=== PATIENT | female | born 1945 | race Caucasian/White ===

== ENCOUNTER → 2016-11-02 | Outpatient (CLI) | payer BC ==
[~2016-11-02] MED LIST: ASPEC81 PO; ATEN-175 PO; ATOR-26 PO; EZET10TA63 PO; FLUO20CA35 PO; GLCSC750600 PO; INSUINJ SC; LEVO100T7 PO; LOSA25TA18 PO; METF1000 PO; MULTCHW PO; NTRGSL/4 UT; REPA2TAB12 PO
[2016-11-02 14:21] LABS: ESTIMATED AVERAGE GLUCOSE 137 mg/dl; HA1C FLAG Normal (Normal)
== END | disposition home or self-care (01) ==
LOC: C.LABBC 11:17
PROVIDERS: ATTEND Nurse Practitioner Adult Health
DX: E11.9 Type 2 diabetes mellitus without complications (principal)

== ENCOUNTER → 2017-01-22 | Outpatient (CLI) | payer BC ==
[~2017-01-22] MED LIST changes: -REPA2TAB12 PO; +REPA2TAB13 PO
[2017-01-22 13:56] LABS: CHOLESTEROL/HDL RATIO 2.5; ESTIMATED AVERAGE GLUCOSE 140 mg/dl; HA1C FLAG Normal (Normal)
== END | disposition home or self-care (01) ==
LOC: C.LABBC 09:17
PROVIDERS: ATTEND Internal Medicine Cardiovascular Disease
DX: I25.10 Atherosclerotic heart disease of native coronary artery without angina pectoris (principal); E11.9 Type 2 diabetes mellitus without complications

== ENCOUNTER → 2017-04-08 | Outpatient (CLI) | payer BC ==
--- NOTE | 2017-04-08 15:20 | DIAGNOSTIC IMAGING REPORT ---
RIGHT ANKLE MIN 3 VIEWS ROUTINE CLINICAL HISTORY: 72 years-old Female presenting with right ankle pain for 6 weeks, most painful laterally. TECHNIQUE: Frontal, mortise, and lateral views of the right ankle were obtained. COMPARISON: None. FINDINGS: Ankle mortise intact. No acute fracture or malalignment. Prominent bone spur at the inferior calcaneus. No additional degenerative change is evident. Regional soft tissues within normal limits. IMPRESSION: 1. No acute osseous injury of the right ankle. Specifically, no abnormality along the lateral aspect. 2. Prominent enthesophyte at the origin of the plantar fascia. Electronically signed by: Vinayak Harris M.D. 04/08/2017 3:18 PM Dictated Date/Time: 04/08/2017 3:17 PM
[2017-04-08 16:30] LABS: BASO % 0.5 %; BASO ABS # 0.06 K/uL (0-0.2); COMPLETE YES; EOS % 3.2 %; HEMATOCRIT 42.4 % (37-47); IG% 0.4 %; LYMPH % 21.8 %; LYMPH ABS # 2.57 K/uL (1.2-3.4); MEAN CELL VOLUME 92.4 fL (80-100); MEAN CORPUSCULAR HEMOGLOBIN 29.8 pg (25-34); MEAN CORPUSCULAR HGB CONC 32.3 g/dl (32-36); MEAN PLATELET VOLUME 10.2 fL (7.4-10.4); MONO % 6.4 %; NEUT % 67.7 %; PLATELET COUNT 386 K/uL (130-400); RED BLOOD COUNT 4.59 M/uL (4.2-5.4)
[2017-04-08 16:51] LABS: C-REACTIVE PROTEIN 0.71 mg/dl (0-0.29); RHEUMATOID FACTOR < 10.0 U/mL (0-15); THYROID STIMULATING HORMONE 0.815 uIu/ml (0.300-4.500); URIC ACID 6.9 mg/dl (2.6-7.2)
[2017-04-08 17:53] LABS: LYME DISEASE AB IGG NEG (NEG); LYME DISEASE AB IGM NEG (NEG)
--- NOTE | 2017-04-15 13:25 | CODING QUERY MEDICAL NECESSITY ---
SUPPORTING DIAGNOSIS NEEDED A supporting diagnosis is required for the test/procedure performed on this patient in order for us to be reimbursed by the patient's insurance. Please provide a supporting diagnosis for the following test/procedure listed below next to the test name along with your signature. *If there is no additional diagnosis for this patient that would support the following test/procedure please document that below next to the test/procedure. Test(s)/Procedure(s) that require a supporting diagnosis: * VITAMIN D, 25-HYDROXY DIAGNOSIS: Provider Signature: Date: Thank you Martha Gross [employer] Once completed, please kindly fax back to [phone] For questions please call [phone]
== END | disposition home or self-care (01) ==
LOC: C.RADBC 12:52
PROVIDERS: ATTEND Nurse Practitioner Family
DX: M25.50 Pain in unspecified joint (principal); M25.571 Pain in right ankle and joints of right foot

== ENCOUNTER → 2017-04-28 | Outpatient (CLI) | payer BC ==
--- NOTE | 2017-04-28 12:37 | DIAGNOSTIC IMAGING REPORT ---
R HAND MIN 3 VIEWS ROUTINE, L HAND MIN 3 VIEWS ROUTINE CLINICAL HISTORY: M25.571 bilateral hand painR76.8 Positive JEN (antinuclear antibody COMPARISON STUDY: None. FINDINGS: No fracture or dislocation. Bone mineralization is intact. Mild soft tissue swelling within the bilateral the AP and PIP joints, right greater than left. There is severe osteoarthritis at the DIP and PIP joints of the hands demonstrated by [id number]-jc-ukrt articulation and large marginal osteophytes. These also demonstrate a seagull deformity consistent with a superimposed erosive arthritis component. There is moderate to severe osteoarthritis within the bilateral first carpometacarpal joints. Mild osteoarthritis within the bilateral MCP joints. IMPRESSION: Advanced osteoarthritis within the bilateral hands as described above with superimposed erosive arthritis component at the majority of the DIP and PIP joints. Electronically signed by: Ezequiel Tate M.D. 04/28/2017 12:36 PM Dictated Date/Time: 04/28/2017 12:33 PM
--- NOTE | 2017-04-28 12:37 | DIAGNOSTIC IMAGING REPORT ---
R HAND MIN 3 VIEWS ROUTINE, L HAND MIN 3 VIEWS ROUTINE CLINICAL HISTORY: M25.571 bilateral hand painR76.8 Positive JEN (antinuclear antibody COMPARISON STUDY: None. FINDINGS: No fracture or dislocation. Bone mineralization is intact. Mild soft tissue swelling within the bilateral the AP and PIP joints, right greater than left. There is severe osteoarthritis at the DIP and PIP joints of the hands demonstrated by ehha-bc-card articulation and large marginal osteophytes. These also demonstrate a seagull deformity consistent with a superimposed erosive arthritis component. There is moderate to severe osteoarthritis within the bilateral first carpometacarpal joints. Mild osteoarthritis within the bilateral MCP joints. IMPRESSION: Advanced osteoarthritis within the bilateral hands as described above with superimposed erosive arthritis component at the majority of the DIP and PIP joints. Electronically signed by: Ezequiel Tate M.D. 04/28/2017 12:36 PM Dictated Date/Time: 04/28/2017 12:33 PM
[2017-04-28 13:48] LABS: ALT/SGPT 45 U/L (12-78); AST/SGOT 38 U/L (15-37); BLOOD UREA NITROGEN 14 mg/dl (7-18); BUN/CREATININE RATIO 15.7 (10-20); CARBON DIOXIDE 26 mmol/L (21-32); CHLORIDE 105 mmol/L (98-107); CREATININE 0.86 mg/dl (0.60-1.20); GLUCOSE 115 mg/dl (70-99); POTASSIUM 4.3 mmol/L (3.5-5.1); SODIUM 139 mmol/L (136-145)
[2017-04-28 13:51] LABS: ALB/GLOB RATIO 1.1 (0.9-2); ALKALINE PHOSPHATASE 86 U/L (45-117); TOTAL IRON BINDING CAPACITY 404 mcg/dl (250-450)
[2017-05-03 05:00] LABS: ANTI-CENTROMERE AB <1.0 NEG AI (<1.0 NEG); ANTI-SS-A <1.0 NEG AI (<1.0 NEG); ANTI-SS-B <1.0 NEG AI (<1.0 NEG); DNA ds CRITHIDIA NEGATIVE (NEGATIVE); Sm Antibody <1.0 NEG AI (<1.0 NEG)
== END | disposition home or self-care (01) ==
LOC: C.RAD1850 10:43
PROVIDERS: ATTEND Internal Medicine Rheumatology
DX: M25.571 Pain in right ankle and joints of right foot (principal); M19.041 Primary osteoarthritis, right hand; M19.042 Primary osteoarthritis, left hand; R76.8 Other specified abnormal immunological findings in serum; E66.01 Morbid (severe) obesity due to excess calories; E11.9 Type 2 diabetes mellitus without complications; Z79.4 Long term (current) use of insulin

== ENCOUNTER → 2017-07-21 | Outpatient (CLI) | payer BC ==
[~2017-07-21] MED LIST changes: +CHOL1000 PO; +CYAN100020 PO; +LIRA18IN SC; +NVLGI/PEN SC; +REPA2TAB12 PO; -REPA2TAB13 PO
== END | disposition home or self-care (01) ==
LOC: C.LABBC 08:25
PROVIDERS: ATTEND Internal Medicine Cardiovascular Disease
DX: E78.5 Hyperlipidemia, unspecified (principal); I10 Essential (primary) hypertension

== ENCOUNTER → 2017-11-19 | Outpatient (CLI) | payer BC ==
[~2017-11-19] MED LIST changes: -CHOL1000 PO; -CYAN100020 PO; -LIRA18IN SC; -NVLGI/PEN SC
[2017-11-19 14:04] LABS: HEMOGLOBIN A1C 7.2 % (4.5-5.6)
== END | disposition home or self-care (01) ==
LOC: C.LABBC 11:52
PROVIDERS: ATTEND Nurse Practitioner Adult Health
DX: E11.9 Type 2 diabetes mellitus without complications (principal)

== ENCOUNTER 2022-01-14 05:16 | Observation (INO) ==
--- NOTE | 2021-12-16 09:27 | PAT Medication Instructions ---
Medication Instructions Date of Service December 16, 2021 Home Medications Medication Instructions Recorded OneTouch Ultra Blue Test Strip #300 ea NS 07/31/19 (blood sugar diagnostic) insulin aspart U-100 100 unit/mL 8 unit SUBCUT BID #1 box MDD 16 12/26/20 (3 mL) subcutaneous pen (Novolog units TDD Flexpen U-100 Insulin aspart) FreeStyle Bobby 2 Sensor (flash #2 ea NS 02/04/21 glucose sensor) atorvastatin 80 mg tablet 80 mg PO HS #90 tab 04/01/21 flash glucose scanning reader #1 ea 04/08/21 (FreeStyle Bobby 2 [place]) pen needle, diabetic 32 gauge x #100 ea 08/07/21" (BD Ultra-Fine [place] Pen Needle) metformin 1,000 mg tablet 1,000 mg PO BID #180 tab 10/08/21 cyanocobalamin (vitamin B-12) 1,000 mcg tablet 1,000 mcg PO QAM Centrum Silver 1 tab PO QAM melatonin 10 mg capsule 10 mg PO HS PRN cholecalciferol (vitamin D3) 50 mcg (2,000 unit) tablet 5,000 unit PO QAM loratadine 10 mg tablet (Claritin) 10 mg PO QAM PRN insulin aspart U-100 100 unit/mL (3 mL) subcutaneous pen (Novolog Flexpen U-100 Insulin aspart) 8 unit SUBCUT BID atorvastatin 80 mg tablet 80 mg PO HS [id number]-[id number] 750 mg-100 mg-125 mg-1.65 mg tablet (Glucosamine Chondroit Complx Advan) 1 tab PO QAM liraglutide 0.6 mg/0.1 mL (18 mg/3 mL) subcutaneous pen injector (Victoza 3-Newton) 1.8 mg SUBCUT QAM metformin 1,000 mg tablet 1,000 mg PO BID aspirin 81 mg tablet,delayed release 81 mg PO HS atenolol 100 mg tablet 100 mg PO QAM ezetimibe 10 mg tablet (Zetia) 10 mg PO QAM fluoxetine 20 mg capsule 20 mg PO QAM insulin glargine U-300 conc 300 unit/mL (1.5 mL) subcutaneous pen (Toujeo SoloStar U-300 Insulin) 54 unit SQ BID levothyroxine 100 mcg tablet 100 mcg PO QAM losartan 50 mg tablet 50 mg PO QAM STOP taking 2 weeks before surgery (or as soon as possible if surgery is within 2 weeks) uowiimvowma-bgvgfgbwt-zbxg479-hyal 750 mg-100 mg-125 mg-1.65 mg tablet (Glucosamine Chondroit Complx Advan) 1 tab PO QAM DO NOT take the morning of surgery cyanocobalamin (vitamin B-12) 1,000 mcg tablet 1,000 mcg PO QAM Centrum Silver 1 tab PO QAM cholecalciferol (vitamin D3) 50 mcg (2,000 unit) tablet 5,000 unit PO QAM loratadine 10 mg tablet (Claritin) 10 mg PO QAM PRN insulin aspart U-100 100 unit/mL (3 mL) subcutaneous pen (Novolog Flexpen U-100 Insulin aspart) 8 unit SUBCUT BID liraglutide 0.6 mg/0.1 mL (18 mg/3 mL) subcutaneous pen injector (Victoza 3-Newton) 1.8 mg SUBCUT QAM metformin 1,000 mg tablet 1,000 mg PO BID losartan 50 mg tablet 50 mg PO QAM Take morning of surgery With a small sip of water, OTHERWISE NOTHING TO EAT OR DRINK AFTER MIDNIGHT: atenolol 100 mg tablet 100 mg PO QAM ezetimibe 10 mg tablet (Zetia) 10 mg PO QAM fluoxetine 20 mg capsule 20 mg PO QAM levothyroxine 100 mcg tablet 100 mcg PO QAM Take evening before surgery melatonin 10 mg capsule 10 mg PO HS PRN (if needed) insulin aspart U-100 100 unit/mL (3 mL) subcutaneous pen (Novolog Flexpen U-100 Insulin aspart) 8 unit SUBCUT BID atorvastatin 80 mg tablet 80 mg PO HS metformin 1,000 mg tablet 1,000 mg PO BID aspirin 81 mg tablet,delayed release 81 mg PO HS (continue as normal unless told otherwise by surgeon) insulin glargine U-300 conc 300 unit/mL (1.5 mL) subcutaneous pen (Toujeo SoloStar U-300 Insulin) 54 unit SQ BID Insulin Dependent Diabetic Patients * Test your blood sugar the morning of surgery * If Blood Sugar is GREATER THAN 150, take HALF of your regular dose of: insulin glargine U-300 conc 300 unit/mL (1.5 mL) subcutaneous pen (Toujeo SoloStar U- 300 Insulin) take 27 units * If Blood Sugar is LESS THAN 150, DO NOT TAKE ANY: insulin glargine U-300 conc 300 unit/mL (1.5 mL) subcutaneous pen (Toujeo SoloStar U-300 Insulin) Other Notes If you have any questions please call us at [phone] or [phone] or [phone] or [phone]
--- NOTE | 2021-12-18 13:54 | Anesthesiology Consultation ---
Date of Service December 18, 2021 Assessment & Plan (1) Encounter for pre-operative examination: - COVID screening: Per assessment on 12/18: No known COVID-19 positive contacts or current COVID-19 related symptoms. Travel screen negative. Patient vaccinate d. Surgeon arranging preop COVID testing. Awaiting results. - Cardiology office visit (09/30/21): "she is contemplating knee replacement surgery. She is able to climb 4-5 flight of stairs without cardiac symptoms. She is an acceptable risk for surgery without further testing." - Check BSG AM DOS Chart Review Chart Review: Acceptable Risk for Surgery and Patient seen in Pre Admission Testing Teaching & Discussion Pre-Anesthesia Teaching/Discussion Notes: Instructed NPO after midnight before surgery,except medications with 15 cc of water. Medication instructions provided according to the PAT guidelines. History Surgery Operation Date: 01/14/22 09:05 Proposed Procedures p Left Total Knee Arthroplasty - Nawaf Russell MD Height/Weight Height: 5 ft 2.25 in Weight: 101.3 kg Allergies Allergy/AdvReac Type Severity Reaction Status Date / Time amoxicillin AdvReac Unknown Diarrhea Verified 12/15/21 13:45 clavulanic acid AdvReac Unknown Diarrhea Verified 12/15/21 13:45 Medications Home Medications Medication Instructions Recorded Confirmed Last Taken cyanocobalamin (vitamin B-12) 1,000 mcg PO QAM #30 tab 05/19/19 12/15/21 Unknown 1,000 mcg tablet icfonigo-vnc-ucisx acid 0.4 1 tab PO QAM 05/19/19 12/15/21 Unknown mg-lycopene 300 mcg-lutein 250 mcg tablet (Centrum Silver) OneTouch Ultra Blue Test Strip #300 ea NS 07/31/19 12/01/21 Unknown (blood sugar diagnostic) melatonin 10 mg capsule 10 mg PO HS PRN cap 08/04/19 12/15/21 Unknown cholecalciferol (vitamin D3) 50 5,000 unit PO QAM tab 07/20/20 12/15/21 Unknown mcg (2,000 unit) tablet loratadine 10 mg tablet (Claritin) 10 mg PO QAM PRN 12/16/20 12/15/21 Unknown insulin aspart U-100 100 unit/mL 8 unit SUBCUT BID #1 box MDD 16 12/26/20 12/01/21 Unknown (3 mL) subcutaneous pen (Novolog units TDD Flexpen U-100 Insulin aspart) FreeStyle Bobby 2 Sensor (flash #2 ea NS 02/04/21 12/01/21 Unknown glucose sensor) atorvastatin 80 mg tablet 80 mg PO HS #90 tab 04/01/21 12/15/21 Unknown flash glucose scanning reader #1 ea 04/08/21 12/01/21 Unknown (FreeStyle Bobby 2 [place]) cdfbrvuyldo-odmyqgfmv-dyst510-hyal 1 tab PO QAM tab 08/07/21 12/15/21 Unknown 750 mg-100 mg-125 mg-1.65 mg tablet (Glucosamine Chondroit Complx Advan) pen needle, diabetic 32 gauge x #100 ea 08/07/21 12/01/21 Unknown " (BD Ultra-Fine Mariam Pen Needle) liraglutide 0.6 mg/0.1 mL (18 mg/3 1.8 mg SUBCUT QAM ml 09/30/21 12/15/21 Unknown mL) subcutaneous pen injector (GenSight Biologicstoza 3-Newton) metformin 1,000 mg tablet 1,000 mg PO BID #180 tab 10/08/21 12/15/21 Unknown aspirin 81 mg tablet,delayed 81 mg PO HS 12/15/21 12/15/21 Unknown release atenolol 100 mg tablet 100 mg PO QAM 12/15/21 12/15/21 Unknown ezetimibe 10 mg tablet (Zetia) 10 mg PO QAM 12/15/21 12/15/21 Unknown fluoxetine 20 mg capsule 20 mg PO QAM 12/15/21 12/15/21 Unknown insulin glargine U-300 conc 300 54 unit SQ BID 12/15/21 12/15/21 Unknown unit/mL (1.5 mL) subcutaneous pen (Toujeo SoloStar U-300 Insulin) levothyroxine 100 mcg tablet 100 mcg PO QAM 12/15/21 12/15/21 Unknown losartan 50 mg tablet 50 mg PO QAM #30 tab 12/18/21 Unknown Past Medical History Medical History Coronary artery disease s/p LAD PTCA (1992), Follows with [facility] Depression Diabetes mellitus IDDM Dyslipidemia Elevated transaminase level Hypertension Hypothyroidism Morbid obesity Osteoarthritis Positive JEN (antinuclear antibody) Per records, Pt denies knowledge Exercise / Class Metabolic Activity III < 4 Walking/Shop/Light housework Past Family History Family History Mother Breast cancer Father Bone cancer Brother Bladder cancer Myocardial infarction Other Coronary heart disease Diabetes No family history of adverse response to anesthesia Denies family history of Ovarian cancer Prostate cancer Colorectal cancer Past Surgical History Surgical History H/O section x1 History of colonoscopy History of tonsillectomy Status post angioplasty 1992 Past Anesthesia History No Hx of Anesthesia Complications and No Family Hx of Anesthesia Complications History of PONV No Hx of PONV and No Hx of Motion Sickness Social History Smoking Status: Never smoker Do You Dip or Chew Tobacco: No Hx Alcohol Use: No Hx Substance Use: No substance use type: does not use Review of Systems Chronic, occasional cough r/t post nasal drip- unchanged. Patient denies chest pain, shortness of breath, fever, chills, wheezing, palpitations. Physical Exam Vital Signs VITALS BP 151/80 P 75 TEMP 98.5 SP02 96%RA RESP 16 PHYSICAL Full cervical extension range of motion. Full TMJ range of motion. TMD 2.5 finger breaths Mallampati Score 3 Dentition: missing sides, left lower side bridge Lungs: clear throughout to auscultation Cardiac: regular rate and rhythm, no murmurs noted Spine: normal Carotid arteries: negative bruit Extremities: no edema Lab Results Anesthesia Preop Results Results Anesthesia Widget: WBC 10.24 K/uL (4.8-10.8) 12/18/21 Hgb 13.4 g/dL (12.0-16.0) 12/18/21 Hct 40.4 % (37-47) 12/18/21 Plt 324 K/uL (130-400) 12/18/21 Na 136 mmol/L (136-145) 12/18/21 K 4.5 mmol/L (3.5-5.1) 12/18/21 Cl 102 mmol/L (98-107) 12/18/21 CO2 27 mmol/L (21-32) 12/18/21 BUN 18 mg/dl (6-23) 12/18/21 Creat 0.90 mg/dl (0.6-1.2) 12/18/21 Glucose Level 235 mg/dl (70-99(Fasting)) H 12/18/21 PT 11.0 Seconds (9.0-12.0) 12/18/21 PTT 26.4 Seconds (21.0-31.0) 12/18/21 INR 1.0 (0.9-1.1) 12/18/21 TSH 1.389 uIu/ml (0.300-4.500) 12/18/21 HA1c 8.5 % (4.5-5.6) H 12/18/21 Blood Type A Negative 12/18/21 Antibody Screen NEGATIVE 12/18/21 Testing Laboratory Results Surgeon's office made aware of elevated hgba1c/a1c Electrocardiogram Date: 12/18/21 NSR at 68bpm. Chest X-Ray Date: 12/18/21 FINDINGS: Frontal and lateral radiographs of the chest demonstrate the cardiomediastinal silhouette to be within normal limits. The lungs are clear of alveolar opacities. There is no evidence for effusion bilaterally. There is no evidence for vascular congestion. There is no acute osseous pathology. IMPRESSION: No acute cardiopulmonary disease.
--- NOTE | 2022-01-10 17:50 | History and Physical Report ---
DATE OF ADMISSION: 01/14/2022. CHIEF COMPLAINT: Persistent left knee pain and discomfort. HISTORY OF PRESENT ILLNESS: The patient is a 76-year-old white female who I have been following for the past 2 years for advanced knee arthritis. We have been treating her conservatively over the year s with injections, which have become less successful over time. The last shot really did not help daniel nolan at all. Pain is mostly medial, but some global pain. The more she is up in her legs, the more it hurts, more she limps. It swells as the day goes on. She is having nighttime discomfort as well. She is kind of fed up with her knee and would like to have it fixed. PAST MEDICAL HISTORY: 1. Hypertension. 2. Elevated cholesterol. 3. Diabetes x15 years. 4. Obesity with BMI of 41. 5. Low back pain. 6. Arthritis. PAST SURGICAL HISTORY: Include, 1. . 2. Angioplasty followed by Dr. Sams. ALLERGIES: AMOXICILLIN, CLAVULANIC ACID, WHICH CAUSES GI SYMPTOMS. CURRENT MEDICATIONS: Include. 1. Aspirin. 2. Atenolol. 3. Atorvastatin. 4. Vitamin D3. 5. Vitamin B12. 6. Zetia. 7. Fluoxetine. 8. Insulin. 9. Levothyroxine. 10. Victoza. 11. Claritin. 12. Losartan. 13. Melatonin. 14. Metformin. 15. Multivitamin. SOCIAL HISTORY: A 76-year-old white female. She is . She does not smoke. FAMILY HISTORY: Noncontributory. REVIEW OF SYSTEMS: Significant for fairly poorly controlled diabetes. She has been working hard to try and control this. No chest pain or shortness of breath. No history of DVT or PE. She does have a history of a cardiac stent placement. She has been cleared by Dr. Sams. PHYSICAL EXAMINATION: GENERAL: Shows a pleasant middle-aged female, looks to be in reasonably good health. HEENT: Benign. NECK: Supple. No lymphadenopathy. LUNGS: Clear to auscultation. HEART: Regular rate and rhythm. ABDOMEN: Soft, nontender, nondistended. EXTREMITIES: Grossly neurovascularly intact except as follows. Examination of the left knee reveal patient ambulates with a bit of a limp. She clearly limps on thi s left side. Moderate soft tissue envelope. Slight varus alignment to her knee. Tender over the me dial joint line. Small to moderate-sized knee effusion. Range of motion 5-10 degrees short of full extension to 120 degrees of flexion. No instability. No pain with hip motion. X-RAYS: X-rays of left knee reveal advanced left knee degenerative joint disease. She has complete loss of her medial joint space, she has osteophytes in all 3 compartments. ASSESSMENT: A 76-year-old white female with multiple medical comorbidities including coronary artery disease, status post stenting, diabetes, depression, obesity, elevated cholesterol, hypothyroidism w ith advanced left knee degenerative joint disease. She has failed conservative treatment and would l pablito to have her left knee replaced. PLAN: We will take her to the operating room and do left total knee replacement. The risks and bene fits of this procedure were explained to the patient include but not limited to DVT, PE, , infec tion, neurological injury, vascular injury, bleeding problem, pain, limited range of motion, stiffnes s, failure to relieve her symptoms, incomplete relief of symptoms, need for further surgery in the fu ture, etc. The patient understands and desires to proceed. Informed consent was obtained. She has been seen by Dr. Sams and cleared for surgery without further testing. She is planning to b e discharged to home using [facility] program. She knows to hold her metformin on the mor josh of surgery, take her atenolol and her thyroid medicine. Job ID: [id number]
[2022-01-14] MEDS ORDERED: ceFAZolin 2000MG 2,000 MG/15 ML SYR IV SCH (06:00)
[2022-01-14] MEDS ORDERED: CeleBREX 200 MG CAP PO SCH (06:00)
[2022-01-14] MEDS ORDERED: FAMOTIDINE 20 MG TAB PO SCH (06:00)
[2022-01-14] MEDS ORDERED: TRANEXAMIC ACID 1,000 MG **IV Intra-op IV SCH (06:00)
[2022-01-14] MEDS ORDERED: LR 60ML/HR IV SCH (06:00)
[2022-01-14] MEDS ORDERED: ACETAMINOPHEN 500 MG TAB PO SCH (06:00)
[2022-01-14] MEDS ORDERED: LR 500ML BOLUS, THEN 15ML/HR IV SCH (06:00)
[2022-01-14] MEDS ORDERED: METOCLOPRAMIDE HCL 10 MG TABLET PO SCH (06:00)
[2022-01-14] MEDS ORDERED: BUPIVACAINE LIPOSOME/PF 266 MG, BUPIVACAINE/EPINEPHRINE 50 ML, SODIUM CHLORIDE 0.9% 30 ... INFIL SCH (06:00)
[2022-01-14] MEDS ORDERED: MIDAZOLAM HCL 1 MG/ML 2ML VIAL ONE (06:17)
[2022-01-14] MEDS ORDERED: fentaNYL citrate 100 MCG/2 ML VIAL ONE (06:23)
[2022-01-14] MEDS ORDERED: ROPIVACAINE 0.5% 5 MG/ML 30 ML VIAL ONE (06:28)
[2022-01-14] MEDS ORDERED: BUPIVACAINE 0.5 % 5 MG/1 ML PF 10ML VIAL ONE (06:28)
[2022-01-14] MEDS ORDERED: SODIUM CHLORIDE 0.9% PF 50 ML VIAL ONE (06:32)
[2022-01-14] MEDS ORDERED: BUPIVACAINE/EPINEPHRINE 0.25% 1:200,000 30 ML VIAL ONE (06:32)
[2022-01-14] MEDS ORDERED: BUPIVACAINE LIPOSOME 1.3% 266 MG/20 ML VIAL ONE (06:33)
[2022-01-14] MEDS ORDERED: fentaNYL citrate 100 MCG/2 ML VIAL IV PRN (06:38)
[2022-01-14] MEDS ORDERED: ATROPINE SULFATE 0.1 MG/ML 10ML SYR IV PRN (06:38)
[2022-01-14] MEDS ORDERED: ONDANSETRON INJ 2 MG/ML 2 ML VIAL IV PRN (06:38)
[2022-01-14] MEDS ORDERED: ePHEDrine sulfate 50 MG/ML AMP IV PRN (06:38)
--- NOTE | 2022-01-14 06:54 | History & Physical Bridge Note ---
Date of Service January 14, 2022 History & Physical Bridge Note I have examined the patient, reviewed the History & Physical and in the interval since the performance of the History & Physical I have noted the following changes of clinical significance: no changes noted
[2022-01-14] MEDS ORDERED: PROPOFOL IV EMULSION 10 MG/ML 20 ML VIAL IV ONE ×2 (07:15→08:23)
[2022-01-14] MEDS ORDERED: ONDANSETRON INJ 2 MG/ML 2 ML VIAL ONE (07:16)
--- NOTE | 2022-01-14 08:57 | Operative Report ---
PG Post Operative Report Pre & Post Diagnosis Operation Date: 01/14/22 07:00 Pre-Op Diagnosis: Left Knee Advanced Degenerative Joint Disease Post-Op Diagnosis: Left Knee Advanced Degenerative Joint Disease I identified the patient and participated in the time-out.: Yes Procedure Operation Date: 01/14/22 07:00 Actual Procedures p Left Total Knee Arthroplasty(Left) - Nawaf Russell MD Surgeon Nawaf Russell MD Vamp Seamer Prieto Hoffmann PA-C Estimated Blood Loss 50 Findings Consistent with Post-Op Diagnosis Operative findings were advanced left knee tricompartment DJD. She had extensive grade 4 [id number] disease of the medial compartment with some spotty grade 4 changes in the patellofemoral as well as lateral compartment. Slight varus alignment to her knee. Osteophytes primarily medially. Moderate- sized knee joint effusion. Fluids 1200 cc Specimens Left knee sent for pathology Drains None Anesthesia Type Spinal MAC Complications none Disposition Accompanied Patient To Recovery: No Indications Patient 76-year-old female has had a several year history of bilateral knee pain discomfort left side greater than right. She been through extensive conservative treatment became less successful over time. He is now elected proceed with surgical management. Description of Procedure Operative implants consisted of: 1 Biomet Vanguard size 60 left posterior stabilized femoral component. 2. Biomet size 63 tibial tray. 3. 10 mm posterior stabilized polyethylene insert. 4. 28 x 8 all Paller patella. The patient was taken the operating, identified, placed on the operating table supine position protectors were properly padded. IV antibiotics tried by anesthesia team. A spinal anesthetic and abductor canal block had provided in the holding area. A Wiggins catheter was placed in sterile fashion. Left factor was then placed in the left lower extremities and prepped and draped in usual sterile fashion. The left leg was elevated exsanguinated with use of an Esmarch and the tourniquet was set at 300 mmHg. An anterior approach to the left knee was then performed to longitudinal incision centered over the patella. Sharp dissection was carried through subcutaneous tissue down the extensor mechanism. Medial parapatellar arthrotomy incision was made. I really tried to minimize the subcu dissection due to her diffuse edema. Subperiosteal dissection was carried out medially. The fat pad was dissected from Neath patella tendon. Lateral patellofemoral ligament was released. Patella subluxated laterally and the knee was flexed. The osteophytes taken off distal femur. The ACL and PCL were then released from distal femur the tibia subluxated anteriorly. The external tibial alignment jig was then placed in the interface the tibia and adjusted 14 mm medially. Proximal tibial cut was made removed by millimeter bone from the most deficient aspect medial tibial plateau. Some osteophytes taken off medial and posterior medially. Tibia sized to a size 63. Attention drawn the femur. The distal femur examined the sharp drop with intramedullary canal was suction. A left 5 degree valgus cutting guide was placed. Distal femoral cutting block was pinned in place. Distal femoral cut was made to take an additional 3 mm bone off distal femur. The femur was then sized to a size 60. We did downsize this almost an entire size due to the narrow medial and lateral dimensions of the femur. The AP cutting guide was pinned parallel to the epicondylar axis which was 4 degrees of external rotation. The anterior cut, anterior chamfer, posterior cut, posterior chamfer cuts were made. The box cutting guide was placed in just slight lateral box cut was made. The knee was flexed. The remnants of the medial and lateral menisci were excised. The osteophyte taken off the posterior aspect of femur. Trial femoral component was placed. Tibial tray was pinned in maximum external rotation and the drill and stem punch were used to create defect in proximal tibia for the tibial tray. Knee was then trialed and the 10 mm insert fit most appropriately. Attention drawn the patella. The patella was cleaned of all soft tissues. Patella thickness measured 18 mm in thickness. Was cut down to 12. Sized to a size 28 patella. The lug holes were drilled for the 28 patella. The lateral osteophyte is moved. Patella button was placed. Knee was taken through range of motion patella tracked well within no thumbs test. Attention drawn to place the permanent components. All trial components were removed. Bone plug was placed into the distal femur limit blood loss. Double batch Palacos G cement was mixed. Biomet Vanguard size 60 left posterior stabilized femoral component, size 63 tibial tray, a 10 mm posterior stabilized polyethylene insert, and a 28 x 8 all Paller patella then cemented in place. Knee was brought out into full extension total cement hardened. Final cement check was then performed. The pericapsular tissues were injected with total 100 cc of combination of 20 cc of Exparel, 30 cc normal sali ne, 50 cc of quarter percent Marcaine with epinephrine. Patient did receive 1 g tranexamic acid. The tourniquet was let down for final turn time 54 minutes. Hemostasis assured use electrocautery. Extensor mechanism closed with combination 1 PDS suture #1 Vicryl suture in [id number] fashion. Extensor mechanism checked and found to be intact with subcutaneous tissue then closed with 2 Dexon suture in a buried interrupted fashion skin was closed skin albaro. Leg was then cleaned and dried and sterile dressed with Xeroform, 4 fours, sterile cast padding, Marcello bandage were applied. Patient then transferred to the recovery room in stable condition. Patient tolerated procedure well and there were no complications. Prieto Hoffmann, my physician medical administrative assistant, was present for the entire procedure. His assistance was essential and required for appropriate patient positioning, prepping and draping, surgical exposure, performing the technical details of the operation, placement the implants, closure of the wound, and placement of the sterile bandage. I attest to the content of the Intraoperative Record and any orders documented therein. Any exceptions are noted below.
--- NOTE | 2022-01-14 09:10 | XRay Report ---
XR knee LT 1 or 2V routine CLINICAL HISTORY: Surgical Post Op TECHNIQUE: 2 views of the left knee were obtained. Comparison: Comparison is made to knee radiographs 12/01/2021 FINDINGS: Patient is status post total knee arthroplasty with expected postsurgical changes including soft tiss ue swelling, subcutaneous emphysema, and surgical staple placement. No periarticular lucency or hardw are fracture is seen. IMPRESSION: Expected postoperative appearance status post placement of total knee arthroplasty. ACT 112: Negative or not required by law. Electronically signed by: Tuan Morales M.D. 01/14/2022 9:09 AM
--- NOTE | 2022-01-14 09:44 | Anesthesiology Progress Note ---
Date of Service January 14, 2022 Anesthesia Post Procedure Vital Signs Vital Signs: Temp Pulse Pulse Resp BP Pulse Ox 01/14/22 09:20 73 22 158/64 H 99 01/14/22 09:10 80 23 156/72 H 100 01/14/22 09:00 87 20 162/67 H 100 01/14/22 08:50 96.8 F L 84 20 164/73 H 100 01/14/22 05:42 98.1 F 77 20 148/73 H 97 Transfer of Care Handoff Completed per policy Notes Mental Status: alert / awake / arousable and participated in evaluation Patient Amnestic to Procedure: Yes Nausea / Vomiting: adequately controlled Pain: adequately controlled Airway Patency, RR, SpO2: stable & adequate BP & HR: stable & adequate Hydration State: stable & adequate Neuraxial Anesthesia: was administered and sensory block is resolving Anesthetic Complications: no major complications apparent and Pt Satisfied with anesthetic care
[2022-01-14] MEDS ORDERED: bisacodyL 10 MG SUPP PR PRN (10:32)
[2022-01-14] MEDS ORDERED: GLUCOSE 40% GEL 15 GM TUBE PO PRN (10:32)
[2022-01-14] MEDS ORDERED: GLUCOSE 10 TABS/TUBE PO PRN (10:32)
[2022-01-14] MEDS ORDERED: GLUCAGON FOR INJ 1 MG VIAL SQ PRN (10:32)
[2022-01-14] MEDS ORDERED: HYDROmorphone INJ 0.5 MG/0.5 ML SYR IV PRN (10:32)
[2022-01-14] MEDS ORDERED: ALUMINUM/MAGNESIUM SUSP 30 ML UDC PO PRN (10:32)
[2022-01-14] MEDS ORDERED: NALOXONE HCL 0.4 MG/1 ML VIAL/CARP IV PRN (10:32)
[2022-01-14] MEDS ORDERED: PHARMACY GLYCEMIC MGMT CONSULT PRN (10:32)
[2022-01-14] MEDS ORDERED: DEXTROSE 50% 50 ML SYRINGE IV PRN (10:32)
[2022-01-14] MEDS ORDERED: CARBOHYDRATES FOR HYPOGLYCEMIA PO PRN (10:32)
[2022-01-14] MEDS ORDERED: LORATADINE 10 MG TAB PO PRN (10:32)
[2022-01-14] MEDS ORDERED: MAGNESIUM HYDROXIDE SUSP 30 ML UDC PO PRN (10:32)
[2022-01-14] MEDS ORDERED: MELATONIN 3 MG TAB PO PRN (10:55)
[2022-01-14] MEDS: SODIUM CHLORIDE 0.9% 1000ML 1,000 ML IV SCH ×2 (11:02→22:55)
[2022-01-14] MEDS: INSULIN ASPART PER UNIT SC SCH ×3 (12:05→20:43)
[2022-01-14] MEDS: ASPIRIN 81 MG ECTAB PO SCH ×2 (12:21→20:32)
[2022-01-14] MEDS: MULTIVITAMIN TAB PO SCH (12:22)
[2022-01-14] MEDS: DOCUSATE SODIUM 100 MG CAP PO SCH ×2 (12:22→20:32)
[2022-01-14] MEDS: LEVOTHYROXINE SODIUM 100 MCG TABLET PO SCH (12:22)
[2022-01-14] MEDS: EZETIMIBE 10 MG TABLET PO SCH (12:22)
[2022-01-14] MEDS: FLUoxetine HCL 20 MG CAP PO SCH (12:22)
[2022-01-14] MEDS: ATENOLOL 50 MG TABLET PO SCH (12:22)
[2022-01-14] MEDS: DOCUSATE SODIUM/SENNA 50/8.6MG TAB PO SCH (12:22)
[2022-01-14] MEDS: LOSARTAN POTASSIUM 50 MG TAB PO SCH (12:22)
[2022-01-14] MEDS: CYANOCOBALAMIN (B-12) 500 MCG TABLET PO SCH (12:23)
[2022-01-14] MEDS: CHOLECALCIFEROL 5,000 UNITS 125 MCG TAB PO SCH (12:23)
[2022-01-14] MEDS: CEROVITE ADV FORMULA TAB PO SCH (12:23)
--- NOTE | 2022-01-14 12:38 | Pharmacy Report ---
Pharmacy Glycemic Short Note 2 - Date of Service January 14, 2022 - Glycemic Short BSG Results (Last 24 hours): 01/14/22 01/14/22 06:36 11:49 POC Glucose 126 H 112 H OUTPATIENT ANTIDIABETIC REGIMEN: * Toujeo 54 units bid, Novolog with meals, victoza, metformin ASSESSMENT: * 76 year old female now s/p TKA, POD 0. Pharmacy consulted for glycemic management. Postop BSG 112 mg/dL - no steroids given * Patient on large amounts of basal insulin at home. No insulin given preop. Follow [place] [facility], last visit Jul 2021. Per notes, patient forgets a lot of times to take bolus insulin. Therefore, likely home basal is covering meal time insulin needs as well * Plan to start novolog stress 2/3 - will add scale for basal for tonight for reduced PO intake PLAN FOR INPATIENT GLYCEMIC CONTROL: * Hold outpatient oral diabetes medications * Basal insulin * Lantus 20-40 units HS per BSG value * Bolus insulin * NovoLog per scale ACHS or Q6hrs while NPO * Goal Range: Low 110 mg/dL - High 140 mg/dL * Correction Factor: 20 mg/dL/unit * Nutritional / Prandial insulin per carb ratio of 1 unit per 6 grams CHO consumed
[2022-01-14] MEDS: ACETAMINOPHEN 500 MG TAB PO SCH ×2 (13:46→22:56)
--- NOTE | 2022-01-14 14:16 | Progress Notes ---
DATE OF SERVICE: 01/14/2022. SUBJECTIVE: A 76-year-old white female postop from a left knee replacement. She is doing quite well . Really not having any pain yet. Just got the function back in her foot. No chest pain or shortne ss of breath. OBJECTIVE: VITAL SIGNS: Temperature 36.8. Vital signs are stable. PHYSICAL EXAMINATION: GENERAL: Shows a pleasant middle-aged female. She is sitting up in bed and looks pretty comfortable . EXTREMITIES: Examination of the left leg reveals the dressing to be clean, dry and intact. Leg is w ell aligned. She can dorsiflex and plantarflex her foot appropriately. She is neurologically intact . X-RAYS: X-rays of the left knee from recovery room are reviewed. It shows a left cemented posterior stabilized total knee arthroplasty. Components looked to be in good position. No signs of problems . ASSESSMENT: A 76-year-old white female postoperative from a left knee replacement, doing pretty well . Pain is currently controlled. She is neurologically intact. PLAN: 1. DVT prophylaxis includes thigh-high TEDs, SCDs, and aspirin twice a day. 2. PT, OT, weightbear as tolerated. Left total knee protocol. 3. Pain control, doing okay with current pain regimen. 4. IV antibiotics x24 hours. 5. Disposition: Plan to discharge to home with some home health likely tomorrow depending on how ricardo goes on. Job ID: [id number]
[2022-01-14] MEDS ORDERED: TRANEXAMIC ACID / 0.7% NACL 1,000 MG/100 ML BAG IV SCH (15:00)
[2022-01-14] MEDS: oxyCODONE HCL IR 5 MG TAB (IMMEDIATE RELEASE) PO PRN ×2 (15:45→20:26)
[2022-01-14] MEDS: ceFAZolin 2000MG 2,000 MG/15 ML SYR IV SCH ×2 (15:46→22:57)
[2022-01-14] MEDS: KETOROLAC TROMETHAMINE 15 MG/ML VIAL IV SCH ×2 (17:50→23:00)
[2022-01-14] MEDS: ASCORBIC ACID 500 MG TAB PO SCH (17:50)
[2022-01-14] MEDS: ATORVASTATIN 40 MG TAB PO SCH (20:32)
[2022-01-14] MEDS: SENNA 8.6 MG TAB PO SCH (20:32)
[2022-01-14] MEDS: INSULIN GLARGINE SOLOSTAR 100 UNITS/ML 3 ML PEN SC SCH (20:34)
[2022-01-15] MEDS: LEVOTHYROXINE SODIUM 100 MCG TABLET PO SCH (05:43)
[2022-01-15] MEDS: ACETAMINOPHEN 500 MG TAB PO SCH ×3 (05:43→21:18)
[2022-01-15] MEDS: KETOROLAC TROMETHAMINE 15 MG/ML VIAL IV SCH ×4 (05:43→23:19)
[2022-01-15 06:11] LABS: Hemoglobin 11.2 g/dL (12.0-16.0); Mean Corpuscular Hemoglobin 30.2 pg (25-34); Mean Corpuscular Hgb Conc 32.9 g/dL (32-36); Mean Corpuscular Volume 91.6 fL (80-100); Platelet Count 304 K/uL (130-400); RDW Coefficient of Variation 13.1 % (11.5-14.5); RDW Standard Deviation 44.1 fL (36.4-46.3); Red Blood Count 3.71 M/uL (4.2-5.4); White Blood Count 12.69 K/uL (4.8-10.8)
[2022-01-15 06:36] LABS: BUN Creatinine Ratio 19.8 (10-20); Calcium 8.4 mg/dl (8.5-10.1); Creatinine Clr Calc Pharmacy 52.9 ml/min; Est GFR (African American) 62.6 ml/min; Potassium 4.5 mmol/L (3.5-5.1)
[2022-01-15] MEDS: ONDANSETRON INJ 2 MG/ML 2 ML VIAL IV PRN ×2 (07:46→17:49)
--- NOTE | 2022-01-15 08:54 | Pharmacy Report ---
Pharmacy Glycemic Short Note 2 - Date of Service January 15, 2022 - Glycemic Short BSG Results (Last 24 hours): 01/14/22 01/14/22 01/14/22 11:49 16:49 20:31 Glucose POC Glucose 112 H 121 H 135 H 01/15/22 01/15/22 01/15/22 05:34 05:53 07:57 Glucose 135 H POC Glucose 123 H 156 H OUTPATIENT ANTIDIABETIC REGIMEN: * Toujeo 54 units bid, Novolog with meals, victoza, metformin ASSESSMENT: 01/15 * Patient received total of 34 units of insulin yesterday, of which 30 units were basal (this was a reduced dose for decreased PO intake) * Patient continues on diet for this morning. Fasting BSG 135 mg/dL - anticipate BSGs to rise, will adjust scale for Lantus at HS for increased PO intake 01/14 * 76 year old female now s/p TKA, POD 0. Pharmacy consulted for glycemic m anagement. Postop BSG 112 mg/dL - no steroids given * Patient on large amounts of basal insulin at home. No insulin given preop. Follow [facility], last visit Jul 2021. Per notes, patient forgets a lot of times to take bolus insulin. Therefore, likely home basal is covering meal time insulin needs as well * Plan to start novolog stress 2/3 - will add scale for basal for tonight for reduced PO intake PLAN FOR INPATIENT GLYCEMIC CONTROL: * Hold outpatient oral diabetes medications * Basal insulin * Lantus 30-50 units HS per BSG value * Bolus insulin * NovoLog per scale ACHS or Q6hrs while NPO * Goal Range: Low 110 mg/dL - High 140 mg/dL * Correction Factor: 20 mg/dL/unit * Nutritional / Prandial insulin per carb ratio of 1 unit per 6 grams CHO co nsumed
[2022-01-15] MEDS: INSULIN ASPART PER UNIT SC SCH ×4 (09:01→21:15)
[2022-01-15] MEDS: oxyCODONE HCL IR 5 MG TAB (IMMEDIATE RELEASE) PO PRN (09:23)
[2022-01-15] MEDS: CEROVITE ADV FORMULA TAB PO SCH (09:25)
[2022-01-15] MEDS: ASPIRIN 81 MG ECTAB PO SCH ×2 (09:25→20:54)
[2022-01-15] MEDS: EZETIMIBE 10 MG TABLET PO SCH (09:25)
[2022-01-15] MEDS: ASCORBIC ACID 500 MG TAB PO SCH ×2 (09:25→17:42)
[2022-01-15] MEDS: CHOLECALCIFEROL 5,000 UNITS 125 MCG TAB PO SCH (09:25)
[2022-01-15] MEDS: CYANOCOBALAMIN (B-12) 500 MCG TABLET PO SCH (09:26)
[2022-01-15] MEDS: DOCUSATE SODIUM 100 MG CAP PO SCH ×2 (09:26→20:55)
[2022-01-15] MEDS: FLUoxetine HCL 20 MG CAP PO SCH (09:26)
[2022-01-15] MEDS: MULTIVITAMIN TAB PO SCH (09:26)
[2022-01-15] MEDS: DOCUSATE SODIUM/SENNA 50/8.6MG TAB PO SCH (09:26)
--- NOTE | 2022-01-15 11:11 | Progress Notes ---
DATE OF SERVICE: 01/15/2022. SUBJECTIVE: A 76-year-old white female postop day 1 from left knee replacement. Having quite a bit more pain today than last evening. No chest pain or shortness of breath. She has been up and having difficulty getting around. Pretty painful when she puts weight on her leg. OBJECTIVE: VITAL SIGNS: Temperature is 36.8. Vital signs are stable. PHYSICAL EXAMINATION: GENERAL: Shows a pleasant middle-aged female. She is sitting up in bed and looks pretty comfortable . LUNGS: Clear to auscultation. HEART: Regular rate and rhythm. ABDOMEN: Soft, nontender, nondistended. EXTREMITIES: Grossly neurovascularly intact except as follows: Examination of the left leg reveals the leg to be well aligned. Dressing is clean, dry and intact. She can dorsiflex and plantarflex he r foot appropriately. Cannot quite do a straight leg raise. LABORATORY DATA: Hemoglobin 11.2. Hematocrit 34.0. Electrolytes are stable. ASSESSMENT: A 76-year-old white female postoperative day 1 from a left knee replacement, doing okay. Having quite a bit more pain than she had yesterday. She is neurologically intact. PLAN: 1. DVT prophylaxis includes thigh-high TEDs, SCDs, and aspirin twice a day. 2. PT, OT, weightbear as tolerated. Left total knee protocol. 3. Pain control, doing okay with current pain regimen. 4. Disposition: Plan is to discharge her to home with some home health once medically stable and ab le to get around safely. We will see how therapy goes today and likely tomorrow morning. Job ID: [id number]
[2022-01-15] MEDS: LOSARTAN POTASSIUM 50 MG TAB PO SCH (11:40)
[2022-01-15] MEDS: ATENOLOL 50 MG TABLET PO SCH (11:40)
[2022-01-15] MEDS: ATORVASTATIN 40 MG TAB PO SCH (20:54)
[2022-01-15] MEDS: SENNA 8.6 MG TAB PO SCH (20:55)
[2022-01-15] MEDS: INSULIN GLARGINE SOLOSTAR 100 UNITS/ML 3 ML PEN SC SCH (21:16)
[2022-01-15] MEDS: METOCLOPRAMIDE HCL INJ 5 MG/ML 2 ML VIAL IV PRN (23:24)
[2022-01-16] MEDS: ACETAMINOPHEN 500 MG TAB PO SCH (06:30)
[2022-01-16] MEDS: LEVOTHYROXINE SODIUM 100 MCG TABLET PO SCH (06:30)
[2022-01-16] MEDS: ONDANSETRON INJ 2 MG/ML 2 ML VIAL IV PRN (06:32)
[2022-01-16] MEDS: KETOROLAC TROMETHAMINE 15 MG/ML VIAL IV SCH (06:33)
--- NOTE | 2022-01-16 07:55 | Progress Notes ---
DATE OF SERVICE: 01/16/2022. SUBJECTIVE: A 76-year-old white female now postop day 2 from left knee replacement. She is doing qu ite a bit better this morning. Pain seems better controlled. No chest pain or shortness of breath. Not feeling dizzy or lightheaded. OBJECTIVE: VITAL SIGNS: Temperature 36.8. Vital signs are stable. PHYSICAL EXAMINATION: GENERAL: Shows a pleasant, elderly female. She is lying in bed, looks pretty comfortable. EXTREMITIES: Examination of the left leg reveals the leg to be well aligned. Dressing is clean, dry and intact. She can dorsiflex and plantarflex her foot appropriately. She is neurologically intact . ASSESSMENT: A 76-year-old white female postop day 2 from left knee replacement, doing reasonably wel l. Pain is improved. PLAN: 1. DVT prophylaxis including thigh-high TEDs, SCDs, and aspirin. 2. PT, OT, weightbear as tolerated. Left total knee protocol. 3. Pain control, doing okay with current pain regimen. 4. Disposition: Discharge to home with some home health hopefully later today if does okay in [place]. Job ID: [id number]
[2022-01-16] MEDS: DOCUSATE SODIUM/SENNA 50/8.6MG TAB PO SCH (08:42)
[2022-01-16] MEDS: DOCUSATE SODIUM 100 MG CAP PO SCH (08:42)
[2022-01-16] MEDS: INSULIN ASPART PER UNIT SC SCH (08:45)
[2022-01-16] MEDS: METOCLOPRAMIDE HCL INJ 5 MG/ML 2 ML VIAL IV PRN (08:48)
[2022-01-16] MEDS: ASCORBIC ACID 500 MG TAB PO SCH (08:50)
[2022-01-16] MEDS: CYANOCOBALAMIN (B-12) 500 MCG TABLET PO SCH (08:50)
[2022-01-16] MEDS: MULTIVITAMIN TAB PO SCH (08:50)
[2022-01-16] MEDS: CHOLECALCIFEROL 5,000 UNITS 125 MCG TAB PO SCH (08:50)
[2022-01-16] MEDS: CEROVITE ADV FORMULA TAB PO SCH (08:51)
[2022-01-16] MEDS ORDERED: INSULIN GLARGINE SOLOSTAR 100 UNITS/ML 3 ML PEN SC SCH (09:00)
[2022-01-16] MEDS: FLUoxetine HCL 20 MG CAP PO SCH (09:34)
[2022-01-16] MEDS: LOSARTAN POTASSIUM 50 MG TAB PO SCH (09:34)
[2022-01-16] MEDS: ATENOLOL 50 MG TABLET PO SCH (09:34)
[2022-01-16] MEDS: ASPIRIN 81 MG ECTAB PO SCH (09:34)
[2022-01-16] MEDS: EZETIMIBE 10 MG TABLET PO SCH (09:34)
== END 2022-01-16 13:43 | disposition home health service (06) ==
LOC: ASU 05:16 → 3E 05:16